=== PATIENT | male | born 1985 | race Caucasian/White ===

== ENCOUNTER 2020-03-25 15:28 | Inpatient (IN) | payer MEDICAID, OTHER ==
[~2020-03-25] VITALS: Ht 167.6 cm; Wt 72.6 kg
[2020-03-25] MEDS ORDERED: OXYCODONE HCL 5MG TABLET PO ONE (17:15)
[2020-03-25] MEDS ORDERED: MORPHINE SULFATE 4 MG/ML CPJ (NOT FOR IM USE) IV STA (19:33)
[2020-03-25 19:45] LABS: BASOPHILS % 1.3 % (0.0-2.0); EOSINOPHILS % 0.6 % (0.0-5.0); HEMATOCRIT. 33.4 % (42.0-52.0); LYMPHOCYTES % 15.5 % (20.0-50.0); MEAN CORPUSCULAR HEMOGLOBIN 30.3 pg (28.0-32.0); MEAN CORPUSCULAR VOLUME 92.4 fL (80.0-94.0); MEAN PLATELET VOLUME 8.2 fl (7.4-10.4); MONOCYTES % 5.6 % (2.0-8.0); PLATELET 482 x1000/uL (130-400); RED BLOOD CELL COUNT 3.61 mill/uL (4.7-6.1); RED CELL DISTRIBUTION WIDTH 16.2 % (11.6-14.6)
[2020-03-25 19:48] LABS: CHLORIDE 107 mEq/L (98-107)
[2020-03-25] MEDS ORDERED: CEFTRIAXONE 1 G PREMIX 50 ML IV ONE (22:00)
[2020-03-25] MEDS ORDERED: ACETAMINOPHEN 325MG TABLET PO PRN (22:45)
[2020-03-25] MEDS ORDERED: DOCUSATE SODIUM 100MG CAPSULE PO PRN (22:45)
[2020-03-25] MEDS ORDERED: PIPERACILLIN/TAZ 3.375G PREMIX 50 ML IV SCH (22:45)
[2020-03-25] MEDS ORDERED: CLONIDINE 0.1MG TABLET PO PRN (22:45)
[2020-03-25] MEDS ORDERED: ONDANSETRON HCL 4MG/2ML INJ IV PRN (22:45)
[2020-03-25] MEDS ORDERED: LORAZEPAM 0.5MG TABLET PO PRN (22:45)
[2020-03-25] MEDS ORDERED: GUAIFENESIN 200MG/10ML SUGAR FREE UDC PO PRN (22:45)
[2020-03-25] MEDS ORDERED: IPRATROPIUM/ALBUTEROL 0.5-3(2.5)MG/3ML NEB ORI PRN (22:45)
[2020-03-25] MEDS ORDERED: VANCOMYCIN 1 G PREMIX 200 ML IV NR (23:00)
[2020-03-25 23:09] LABS: TOTAL IRON BINDING CAPACITY 438 ug/dL (250-450)
[2020-03-25 23:29] LABS: FOLIC ACID (FOLATE) SERUM >20 ng/mL ng/mL (>5.38)
[2020-03-25 23:34] LABS: *AMPHETAMINES SCREEN URINE NEGATIVE (NEGATIVE); *BARBITURATES SCREEN URINE NEGATIVE (NEGATIVE); *BENZODIAZEPINES SCREEN URINE NEGATIVE (NEGATIVE); CANNABINOID URINE SCREEN NEGATIVE (NEGATIVE); METHADONE URINE SCREEN NEGATIVE (NEGATIVE); OPIATES URINE SCREEN NEGATIVE (NEGATIVE); PHENCYCLIDINE URINE SCREEN NEGATIVE (NEGATIVE)
[2020-03-25 23:35] LABS: *COCAINE SCREEN URINE NEGATIVE (NEGATIVE)
[2020-03-25 23:40] LABS: VITAMIN B12 SERUM 342 pg/mL (211-911)
[2020-03-26] VITALS: BP 153/101
[2020-03-26] MEDS ORDERED: VANCOMYCIN 1 G PREMIX 200 ML IV NR (01:00)
[2020-03-26] MEDS: KETOROLAC 15MG/ML VIAL IV PRN ×3 (01:53→16:20)
[2020-03-26 04:00] VITALS: BP 124/82
[2020-03-26] MEDS ORDERED: PIPERACILLIN/TAZ 2.25G PREMIX 50 ML IV SCH ×2 (06:00)
[2020-03-26] MEDS: PIPERACILLIN/TAZOBACTAM 2.25 G in DEXTROSE 5% WATER 50 ML IV SCH ×4 (06:27→23:30)
[2020-03-26] MEDS: ACETAMINOPHEN 325MG TABLET PO PRN ×3 (06:34→21:33)
[2020-03-26 08:00] VITALS: BP 124/85
[2020-03-26] MEDS: ASCORBIC ACID 500 MG TABLET PO SCH ×2 (09:39→21:32)
[2020-03-26] MEDS: ZINC SULFATE 220 MG ( 50 ) CAPSULE PO SCH (09:39)
[2020-03-26] MEDS: FAMOTIDINE 20MG TABLET PO SCH (09:39)
[2020-03-26] MEDS: AMLODIPINE 10MG TABLET PO SCH (09:40)
[2020-03-26] MEDS: ENOXAPARIN 40MG/0.4ML SYR SUBCUT SCH (09:40)
[2020-03-26 12:00] VITALS: BP 111/72
[2020-03-26 16:00] VITALS: BP 129/81
[2020-03-26] MEDS ORDERED: VANCOMYCIN 750 MG PREMIX 150 ML IV SCH (18:00)
[2020-03-26] MEDS: SODIUM CHLORIDE 0.9% 1,000 ML IV SCH (18:19)
[2020-03-26 20:00] VITALS: BP 115/76
[2020-03-27] VITALS: BP 129/82
[2020-03-27 04:00] VITALS: BP 127/89
[2020-03-27 04:31] LABS: CHLORIDE 106 mEq/L (98-107)
[2020-03-27] MEDS: PIPERACILLIN/TAZOBACTAM 2.25 G in DEXTROSE 5% WATER 50 ML IV SCH ×3 (05:14→18:05)
[2020-03-27 06:51] LABS: BASOPHILS % 0.4 % (0.0-2.0); EOSINOPHILS % 1.2 % (0.0-5.0); HEMATOCRIT. 27.7 % (42.0-52.0); HEMOGLOBIN. 9.3 g/dL (14.0-18.0); LYMPHOCYTES % 9.7 % (20.0-50.0); MEAN CORPUSCULAR HEMOGLOBIN 31.1 pg (28.0-32.0); MEAN PLATELET VOLUME 8.4 fl (7.4-10.4); MONOCYTES % 5.4 % (2.0-8.0); NEUTROPHILS % 83.3 % (40.0-76.0); PLATELET 396 x1000/uL (130-400); RED BLOOD CELL COUNT 3.01 mill/uL (4.7-6.1); RED CELL DISTRIBUTION WIDTH 16.1 % (11.6-14.6)
[2020-03-27 08:00] VITALS: BP 142/90
[2020-03-27] MEDS: AMLODIPINE 10MG TABLET PO SCH (09:37)
[2020-03-27] MEDS: ASCORBIC ACID 500 MG TABLET PO SCH ×2 (09:37→20:49)
[2020-03-27] MEDS: FAMOTIDINE 20MG TABLET PO SCH (09:37)
[2020-03-27] MEDS: ZINC SULFATE 220 MG ( 50 ) CAPSULE PO SCH (09:37)
[2020-03-27] MEDS: ENOXAPARIN 40MG/0.4ML SYR SUBCUT SCH (09:37)
[2020-03-27] MEDS ORDERED: POTASSIUM CHLORIDE 20MEQ TABLET SR PO SCH (10:00)
[2020-03-27 12:00] VITALS: BP 128/92
[2020-03-27] MEDS ORDERED: MAGNESIUM 2 G PREMIX 50 ML IV SCH (12:00)
[2020-03-27] MEDS: SODIUM CHLORIDE 0.9% 1,000 ML IV SCH (15:16)
[2020-03-27] MEDS: KETOROLAC 15MG/ML VIAL IV PRN (15:39)
[2020-03-27 16:00] VITALS: BP 133/86
[2020-03-27 20:00] VITALS: BP 130/85
[2020-03-27] MEDS: MAGNESIUM/ALUMINUM HYDROXIDE/SIMETHICONE 30ML UDC PO PRN (20:52)
[2020-03-27] MEDS: ZOLPIDEM TARTRATE 5MG TABLET PO PRN (22:18)
[2020-03-28] VITALS: BP 122/88
[2020-03-28] MEDS: PIPERACILLIN/TAZOBACTAM 2.25 G in DEXTROSE 5% WATER 50 ML IV SCH ×5 (00:14→23:47)
[2020-03-28 04:00] VITALS: BP 132/93
[2020-03-28 08:00] VITALS: BP 142/95
[2020-03-28] MEDS: ZINC SULFATE 220 MG ( 50 ) CAPSULE PO SCH (08:19)
[2020-03-28] MEDS: ASCORBIC ACID 500 MG TABLET PO SCH ×2 (08:19→21:09)
[2020-03-28] MEDS: ENOXAPARIN 40MG/0.4ML SYR SUBCUT SCH (08:19)
[2020-03-28] MEDS: FAMOTIDINE 20MG TABLET PO SCH (08:19)
[2020-03-28] MEDS: AMLODIPINE 10MG TABLET PO SCH (08:19)
[2020-03-28] MEDS: SODIUM CHLORIDE 0.9% 1,000 ML IV SCH (10:22)
[2020-03-28] MEDS ORDERED: VANCOMYCIN 1250MG in DEXTROSE 5% WATER 250ML IV SCH (11:00)
[2020-03-28 12:00] VITALS: BP 125/78
[2020-03-28 16:00] VITALS: BP 123/87
[2020-03-28] MEDS: MAGNESIUM/ALUMINUM HYDROXIDE/SIMETHICONE 30ML UDC PO PRN (17:15)
[2020-03-28 20:00] VITALS: BP 133/84
[2020-03-28] MEDS: ZOLPIDEM TARTRATE 5MG TABLET PO PRN (22:14)
[2020-03-29] VITALS: BP 127/90
[2020-03-29 04:00] VITALS: BP 122/86
[2020-03-29] MEDS: PIPERACILLIN/TAZOBACTAM 2.25 G in DEXTROSE 5% WATER 50 ML IV SCH ×2 (05:59→12:00)
[2020-03-29] MEDS: KETOROLAC 15MG/ML VIAL IV PRN (06:04)
[2020-03-29] MEDS: SODIUM CHLORIDE 0.9% 1,000 ML IV SCH (07:18)
[2020-03-29 08:00] VITALS: BP 131/93
[2020-03-29] MEDS: ASCORBIC ACID 500 MG TABLET PO SCH (08:47)
[2020-03-29] MEDS: AMLODIPINE 10MG TABLET PO SCH (08:47)
[2020-03-29] MEDS: FAMOTIDINE 20MG TABLET PO SCH (08:47)
[2020-03-29] MEDS: ZINC SULFATE 220 MG ( 50 ) CAPSULE PO SCH (08:47)
[2020-03-29] MEDS: ENOXAPARIN 40MG/0.4ML SYR SUBCUT SCH (08:47)
[2020-03-29 11:30] VITALS: BP 131/93
[2020-03-29 12:00] VITALS: BP 124/89
== END 2020-03-29 12:53 | disposition home or self-care (01) | DRG 720 ==
LOC: ER 15:28 → 6EST 22:31 → ENRESERV 22:51
PROVIDERS: ADMIT Internal Medicine; ATTEND Internal Medicine
DX: A41.9 Sepsis, unspecified organism (principal); N17.0 Acute kidney failure with tubular necrosis; I10 Essential (primary) hypertension; L03.116 Cellulitis of left lower limb; M10.9 Gout, unspecified; D63.8 Anemia in other chronic diseases classified elsewhere; Z79.899 Other long term (current) drug therapy
CPT/HCPCS: 36415; 73590; 73610; 73630; 73700; 76770; 80048; 80053; 80202; 80305; 82607; 82746; 83540; 83550; 83605; 83735; 84550; 85025; 85651; 86141; 87493; 93005; 93970; 99285; J0696; J1650; J1885; J2270; J2543; J3370; J3475; J7060